=== PATIENT | female | born 1950 | race Caucasian/White ===

== ENCOUNTER 2019-07-29 16:29 | Emergency (ER) | payer OTHER, MEDICARE, SELFPAY ==
[2019-07-29 16:29] VITALS: BP 151/81; PULSE 82; RESP 18; TEMP 36.7; O2SAT 96
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
== END 2019-07-29 18:55 | disposition home or self-care (01) ==
LOC: ER 18:34
PROVIDERS: Emergency Provider Physician Assistant
DX: S00.03XA Contusion of scalp, initial encounter (principal); S63.114A Dislocation of metacarpophalangeal joint of right thumb, initial encounter; V48.6XXA Car passenger injured in noncollision transport accident in traffic accident, initial encounter; R93.0 Abnormal findings on diagnostic imaging of skull and head, not elsewhere classified
CPT/HCPCS: 29125; 99284; 70450; 72125; 73140; L3807